=== PATIENT | male | born 1960 | race Caucasian/White ===

== ENCOUNTER 2021-07-16 23:38 | Inpatient (IN) | payer BC ==
[~2021-07-16] VITALS: Ht 165.1 cm; Wt 82.6 kg
[~2021-07-16 23:38] MED LIST: BENA20TA10 PO; CLON0.1T PO
[2021-07-17] VITALS (7 sets, daily range): BP systolic 130–169; BP diastolic 94–110
[2021-07-17] MEDS ORDERED: NITROGLYCERIN OINT 1GM/INCH UDPKT TD ONE
[2021-07-17] MEDS ORDERED: ASPIRIN 81MG TABLET PO ONE
[2021-07-17 00:17] LABS: BASOPHILS % 0.6 % (0.0-2.0); EOSINOPHILS % 2.8 % (0.0-5.0); HEMATOCRIT. 47.7 % (42.0-52.0); HEMOGLOBIN. 16.2 g/dL (14.0-18.0); LYMPHOCYTES % 31.2 % (20.0-50.0); MEAN CORPUSCULAR HEMOGLOBIN 30.3 pg (28.0-32.0); MEAN CORPUSCULAR VOLUME 89.4 fL (80.0-94.0); MEAN PLATELET VOLUME 9.1 fl (7.4-10.4); MONOCYTES % 7.2 % (2.0-8.0); NEUTROPHILS % 58.2 % (40.0-76.0); PLATELET 233 x1000/uL (130-400); RED BLOOD CELL COUNT 5.34 mill/uL (4.7-6.1); RED CELL DISTRIBUTION WIDTH 13.5 % (11.6-14.6)
[2021-07-17 00:19] LABS: CHLORIDE 102 mEq/L (98-107)
[2021-07-17] MEDS ORDERED: DOCUSATE SODIUM 100MG CAPSULE PO PRN (11:00)
[2021-07-17] MEDS ORDERED: MORPHINE SULFATE 2 MG/ML CPJ (NOT FOR IM USE) IV PRN (11:00)
[2021-07-17] MEDS ORDERED: LORAZEPAM 2MG/ML CPJ IV PRN (11:00)
[2021-07-17] MEDS ORDERED: NALOXONE HCL 0.4MG/ML VIAL IV PRN (11:00)
[2021-07-17] MEDS ORDERED: ACETAMINOPHEN 325MG TABLET PO PRN ×2 (11:00)
[2021-07-17] MEDS ORDERED: IPRATROPIUM/ALBUTEROL 0.5-3(2.5)MG/3ML NEB HHN PRN (11:00)
[2021-07-17] MEDS ORDERED: NITROGLYCERIN 0.4MG TABLET SL SL PRN (11:00)
[2021-07-17] MEDS ORDERED: ONDANSETRON HCL 4MG/2ML INJ IV PRN (11:00)
[2021-07-17] MEDS ORDERED: HYDROCODONE/ACETAMINOPHEN 5/325MG TABLET PO PRN (11:00)
[2021-07-17] MEDS: SODIUM CHLORIDE 0.9% 1,000 ML IV SCH ×2 (13:23→23:30)
[2021-07-17 13:41] LABS: METHADONE URINE SCREEN NEGATIVE (NEGATIVE); OPIATES URINE SCREEN NEGATIVE (NEGATIVE)
[2021-07-17 13:43] LABS: *AMPHETAMINES SCREEN URINE NEGATIVE (NEGATIVE); *BARBITURATES SCREEN URINE NEGATIVE (NEGATIVE); *BENZODIAZEPINES SCREEN URINE NEGATIVE (NEGATIVE); *COCAINE SCREEN URINE NEGATIVE (NEGATIVE); CANNABINOID URINE SCREEN NEGATIVE (NEGATIVE)
[2021-07-17 13:45] LABS: PHENCYCLIDINE URINE SCREEN NEGATIVE (NEGATIVE)
[2021-07-17 14:28] LABS: HDL CHOLESTEROL 38 mg/dL (40-59); LDL CHOLESTEROL 99 mg/dL (5-100)
[2021-07-17 14:30] LABS: CREATINE KINASE 70 IU/L (39-308)
[2021-07-17 14:31] LABS: CREATINE KINASE MB FRACTION < 1.0 ng/mL (0.5-3.6)
[2021-07-17] MEDS ORDERED: CHLO25TA2 MT (17:28)
[2021-07-17] MEDS ORDERED: CARV25TA47 PO (17:28)
[2021-07-17] MEDS ORDERED: CHLO25TA2 PO (17:28)
[2021-07-17] MEDS: CLONIDINE 0.1MG TABLET PO PRN (17:35)
[2021-07-18] VITALS: BP 184/110
[2021-07-18] MEDS: CLONIDINE 0.1MG TABLET PO PRN ×2 (01:06→08:24)
[2021-07-18 04:00] VITALS: BP 161/98
[2021-07-18 06:44] LABS: BASOPHILS % 0.7 % (0.0-2.0); EOSINOPHILS % 2.7 % (0.0-5.0); HEMATOCRIT. 47.2 % (42.0-52.0); HEMOGLOBIN. 15.9 g/dL (14.0-18.0); LYMPHOCYTES % 27.2 % (20.0-50.0); MEAN CORPUSCULAR HEMOGLOBIN 30.5 pg (28.0-32.0); MEAN CORPUSCULAR VOLUME 90.8 fL (80.0-94.0); MEAN PLATELET VOLUME 9.6 fl (7.4-10.4); MONOCYTES % 8.6 % (2.0-8.0); NEUTROPHILS % 60.8 % (40.0-76.0); PLATELET 204 x1000/uL (130-400); RED CELL DISTRIBUTION WIDTH 13.2 % (11.6-14.6)
[2021-07-18 08:00] VITALS: BP 162/101
[2021-07-18] MEDS ORDERED: HYDRALAZINE 20MG/ML VIAL IV PRN (08:30)
[2021-07-18 12:00] VITALS: BP 168/98
[2021-07-18] MEDS: SODIUM CHLORIDE 0.9% 1,000 ML IV SCH (12:00)
[2021-07-18 16:30] VITALS: BP 165/88
[2021-07-18] MEDS ORDERED: DILTIAZEM HCL 60MG TABLET PO SCH (18:00)
[2021-07-18 20:00] VITALS: BP 161/103
[2021-07-18] MEDS: DILTIAZEM HCL 60MG TABLET PO SCH (20:34)
[2021-07-19] VITALS: BP 147/91
[2021-07-19] MEDS: DILTIAZEM HCL 60MG TABLET PO SCH ×2 (00:08→06:10)
[2021-07-19] MEDS: SODIUM CHLORIDE 0.9% 1,000 ML IV SCH (00:30)
[2021-07-19 04:00] VITALS: BP 154/95
[2021-07-19 08:00] VITALS: BP 156/98
[2021-07-19 08:18] LABS: BASOPHILS % 0.6 % (0.0-2.0); EOSINOPHILS % 3.4 % (0.0-5.0); HEMATOCRIT. 47.3 % (42.0-52.0); HEMOGLOBIN. 15.9 g/dL (14.0-18.0); LYMPHOCYTES % 26.4 % (20.0-50.0); MEAN CORPUSCULAR HEMOGLOBIN 30.2 pg (28.0-32.0); MEAN CORPUSCULAR VOLUME 89.4 fL (80.0-94.0); MEAN PLATELET VOLUME 9.5 fl (7.4-10.4); MONOCYTES % 8.8 % (2.0-8.0); NEUTROPHILS % 60.8 % (40.0-76.0); PLATELET 213 x1000/uL (130-400); RED BLOOD CELL COUNT 5.29 mill/uL (4.7-6.1); RED CELL DISTRIBUTION WIDTH 13.2 % (11.6-14.6)
[2021-07-19 12:00] VITALS: BP 154/89
[2021-07-19] MEDS: DILTIAZEM HCL 90MG TABLET PO SCH ×2 (12:23→18:00)
[2021-07-19] MEDS ORDERED: DILT90TA2 PO (13:18)
[2021-07-19 17:36] VITALS: BP 148/82
== END 2021-07-19 18:54 | disposition home or self-care (01) | DRG 311 ==
LOC: ER 23:38 → EDBEDREQTM 07-17 02:50 → EDBEDREQ 07-17 02:50 → ENRESERV 07-17 07:27 → 6WST 07-17 08:53
PROVIDERS: ADMIT Internal Medicine; ATTEND Internal Medicine
DX: I24.9 Acute ischemic heart disease, unspecified (principal); N17.9 Acute kidney failure, unspecified; I12.9 Hypertensive chronic kidney disease with stage 1 through stage 4 chronic kidney disease, or unspecified chronic kidney disease; F17.200 Nicotine dependence, unspecified, uncomplicated; N18.30 Chronic kidney disease, stage 3 unspecified; E66.9 Obesity, unspecified; N40.1 Benign prostatic hyperplasia with lower urinary tract symptoms; R33.8 Other retention of urine; E78.5 Hyperlipidemia, unspecified; Z68.30 Body mass index [BMI] 30.0-30.9, adult; Z82.49 Family history of ischemic heart disease and other diseases of the circulatory system
CPT/HCPCS: 36415; 71045; 76770; 78582; 80048; 80053; 80061; 80305; 82550; 82553; 83036; 83880; 84443; 84484; 85025; 85379; 93005; 93306; 99285; A9558; J0360; J7030